=== PATIENT | female | born 1950 | race Caucasian/White ===

== ENCOUNTER → 2017-04-07 | Outpatient (CLI) | payer OTHER, MEDICARE | LOC: FIMAGING 07:43 | PROVIDERS: ATTEND Family Medicine | DX: D25.2 Subserosal leiomyoma of uterus (principal); D25.1 Intramural leiomyoma of uterus; R93.8 Abnormal findings on diagnostic imaging of other specified body structures | CPT/HCPCS: 82465-90; 83718-90; 84478-90 ==

== ENCOUNTER → 2017-05-18 | Outpatient (CLI) | payer OTHER, MEDICARE | LOC: FIMAGING 08:54 | PROVIDERS: ATTEND Family Medicine | DX: Z13.820 Encounter for screening for osteoporosis (principal); M85.89 Other specified disorders of bone density and structure, multiple sites ==

== ENCOUNTER → 2018-03-16 | Outpatient (CLI) | payer OTHER, MEDICARE | LOC: FIMAGING 10:20 | DX: N95.0 Postmenopausal bleeding (principal); D25.9 Leiomyoma of uterus, unspecified; R93.89 Abnormal findings on diagnostic imaging of other specified body structures ==

== ENCOUNTER → 2018-09-13 | Outpatient (CLI) | payer OTHER, MEDICARE | LOC: FIMAGING 08:25 | DX: Z12.31 Encounter for screening mammogram for malignant neoplasm of breast (principal) ==

== ENCOUNTER → 2018-09-28 | Outpatient (CLI) | payer OTHER, MEDICARE | LOC: FIMAGING 12:22 | DX: N63.11 Unspecified lump in the right breast, upper outer quadrant (principal) ==